=== PATIENT | male | born 2000 | race Hispanic/Latino ===

== ENCOUNTER 2021-01-14 18:48 | Emergency (ER) | payer BC | END 2021-01-14 20:15 | disposition home or self-care (01) | LOC: CSHERS 18:48 | DX: S90.02XA Contusion of left ankle, initial encounter (principal); Z21 Asymptomatic human immunodeficiency virus [HIV] infection status; F17.290 Nicotine dependence, other tobacco product, uncomplicated; W10.9XXA Fall (on) (from) unspecified stairs and steps, initial encounter ==